=== PATIENT | female | born 1980 | race Native Hawaiian/Other Pacific Islander ===

== ENCOUNTER 2019-10-14 13:40 | Outpatient (CLI) | payer BC | END 2019-10-14 22:37 | disposition home or self-care (01) | LOC: MAMMO 13:40 | DX: Z12.31 Encounter for screening mammogram for malignant neoplasm of breast (principal) ==

== ENCOUNTER 2020-10-26 08:21 | Outpatient (CLI) | payer BC | END 2020-10-26 20:23 | disposition home or self-care (01) | LOC: MAMMO 08:21 | PROVIDERS: ATTEND Obstetrics & Gynecology | DX: Z12.31 Encounter for screening mammogram for malignant neoplasm of breast (principal) ==

== ENCOUNTER 2021-02-01 08:47 | Outpatient (CLI) | payer BC | END 2021-02-01 22:34 | disposition home or self-care (01) | LOC: MRI 08:47 | PROVIDERS: ATTEND Nurse Practitioner | DX: M54.6 Pain in thoracic spine (principal); M54.2 Cervicalgia ==

== ENCOUNTER 2022-10-23 08:34 | Outpatient (CLI) | payer BC | END 2022-10-23 19:01 | disposition home or self-care (01) | LOC: MAMMO 08:34 | PROVIDERS: ATTEND Obstetrics & Gynecology | DX: Z12.31 Encounter for screening mammogram for malignant neoplasm of breast (principal) ==